=== PATIENT | female | born 1980 | race Caucasian/White ===

== ENCOUNTER 2018-12-29 11:18 | Emergency (ER) | payer SELFPAY ==
[~2018-12-29] VITALS: Ht 152.4 cm; Wt 62.6 kg
[2018-12-29 11:47] VITALS: Ht 152.4 cm; Wt 62.6 kg
--- NOTE | 2018-12-29 14:10 | ERD ---
ER Documentation Chief Complaint Chief Complaint dizziness x 3 weeks HPI The patient is a 38-year-old female, presenting to the ER because of intermittent dizziness, she feels as if the room is spinning for the last 3 weeks, have been more frequent for the last couple days, complains of bilateral eye twitching, she is under a lot of stress, denies blurred vision, fever, chills, neck pain, chest pain, dyspnea, abdominal pain, vomiting, dizzy, diarrhea. She does not smoke nor drink Past medical history: Asthma Past surgical history: Back surgery and one ROS All systems reviewed and are negative except as per history of present illness. Medications Home Meds Active Scripts Meclizine Hcl* (Antivert*) 12.5 Mg Tab, 25 MG PO Q6H PRN for DIZZINESS, #20 TAB Prov:ANDRE ISABEL MD 12/29/18 Reported Medications Gabapentin* (Gabapentin*) 300 Mg Capsule, 300 MG PO DAILY, #60 CAP 12/29/18 Cetirizine Hcl* (Cetirizine Hcl*) 5 Mg/5 Ml Solution, 10 MG PO DAILY, #300 ML 12/29/18 Montelukast Sodium* (Montelukast Sodium*) 10 Mg Tablet, 10 MG PO QHS, #30 TAB 12/29/18 Fluticasone-Vilanterol (Breo Ellipta Inhaler) 100-25 Mcg/Actuation Aer.pow.ba, 1 PUFF INHALATION DAILY, #1 INHALER 12/29/18 Allergies Allergies: Uncoded Allergies: SEAFOOD (Allergy, Unknown, 12/29/18) Physical Exam Vitals Vital Signs Date Temp Pulse Resp B/P (MAP) Pulse Ox O2 O2 Flow FiO2 Time Delivery Rate 12/29/18 98.6 102 20 139/98 100 11:47 (112) Physical Exam Const: No acute distress. Head: Atraumatic. Eyes: Normal Conjunctiva. ENT: Normal External Ears, Nose and Mouth. Bilateral tympanic membranes are within normal limit. No facial tenderness Neck: Full range of motion. No meningismus. Resp: Clear to auscultation bilaterally. Cardio: Regular rate and rhythm. Abd: Soft, non distended, normal bowel sounds, non tender. Skin: No petechiae or rashes. Back: No midline or flank tenderness. Ext: No cyanosis, or edema. Neur: Awake and alert. No focal deficit Psych: Normal Mood and Affect. Results 24 hrs Laboratory Tests Test 12/29/18 14:41 POC Beta HCG, Qualitative NEGATIVE Current Medications Medications Dose Sig/Adelina Start Time Status Last (Trade) Ordered Route PRN Stop Time Admin Dose Reason Admin Meclizine 25 mg ONCE ONCE 12/29/18 DC 12/29/18 HCl PO 14:30 14:33 (Antivert) 12/29/18 14:32 Procedures/MDM EKG: Read by emergency physician Rate/Rhythm: Normal Sinus Rhythm 81beats/min QRS, ST, T-waves: No ST elevation, no T inversion Impression: Normal EKG [place] [id number] Radiology Main Line: [phone] DIAGNOSTIC IMAGING REPORT Patient: CHLOE MCNEILL : 1980 Age: 38 Sex: F MR #: [id number] DOS: 12/29/18 1417 Ordering MD: ANDRE ISABEL MD Location: E/R Room/Bed: PROCEDURE: CT brain without contrast CLINICAL INDICATION: Dizziness TECHNIQUE: CT of the brain without contrast was performed on a multidetector CT scanner, with multiplanar reformats. One or more of the following dose reduction techniques were used: Automated exposure control, adjustment in mA and / or kV according to patient size, use of iterative reconstructive technique. CTDIvol = 39 mGy; DLP = 634 mGy-cm. DICOM images are available. COMPARISON: None available FINDINGS: No acute intracranial hemorrhage is identified. No extra-axial fluid collection is seen. There is no mass effect. No midline shift is identified. The ventricles and sulci are within normal limits for size and configuration. The density of the brain is unremarkable. Khan-white junctions are preserved. Calvarium and skull base are intact. Mastoid air cells and imaged paranasal sinuses grossly clear. IMPRESSION: No evidence of acute intracranial pathology. RPTAT: VV .Jose Reis MD, Date Time Electronically viewed and signed by .Jose Reis MDMD on 12/29/2018 15:38 .O/ CC: ANDRE ISABEL MD [id number] MEDICAL MAKING DECISION: The patient is a 38-year-old female, presenting to the ER because of acute dizziness, most likely acute benign positional vertigo. She was treated with Antivert 25 mg p.o. for acute dizziness with good response, is stable for outpatient follow-up The differential diagnoses considered include but are not limited to central causes such as cerebellar infarct, cerebellar hemorrhage, cerebellar tumor, acoustic neuroma, peripheral causes such as benign positional vertigo, labyrinthitis, medication, Meniere's disease. Departure Diagnosis: Primary Impression: Dizziness Condition: Good Comments She was discharged with Antivert The patient's blood pressure was elevated (>120/80) but appears stable without evidence of hypertension emergency or urgency. The patient was counseled about the risks of hypertension and urged to pursue outpatient monitoring and therapy within a week with their primary care physician. I discussed the findings with the patient. I advised the patient to follow-up with the primary physician in about 2-3 days, sooner if needed and return if any concern. Disclaimer: Inadvertent spelling and grammatical errors are likely due to EHR/dictation software use and do not reflect on the overall quality of patient care. Also, please note that the electronic time recorded on this note does not necessarily reflect the actual time of the patient encounter. ANDRE ISABEL MD Dec 29, 2018 14:10
[2018-12-29] MEDS ORDERED: MONT10TA24 PO (14:26)
[2018-12-29] MEDS ORDERED: FLUT1AER INHALATION (14:26)
[2018-12-29] MEDS ORDERED: GABA300C16 PO (14:26)
[2018-12-29] MEDS ORDERED: CETI5SOL PO (14:26)
[2018-12-29] MEDS ORDERED: MECLIZINE 12.5 MG TAB PO ONE (14:30)
[2018-12-29] MEDS ORDERED: MECL12.574 PO (15:54)
[2018-12-29 18:13] VITALS: BP 138/70; PULSE 68; RESP 18
== END 2018-12-29 18:14 | disposition home or self-care (01) ==
LOC: E/R 11:18
DX: R42 Dizziness and giddiness (principal); R40.2142 Coma scale, eyes open, spontaneous, at arrival to emergency department; R40.2362 Coma scale, best motor response, obeys commands, at arrival to emergency department; R40.2252 Coma scale, best verbal response, oriented, at arrival to emergency department; J45.909 Unspecified asthma, uncomplicated
CPT/HCPCS: 70450; 81025; 93005